=== PATIENT | female | born 1995 | race Caucasian/White ===

== ENCOUNTER 2019-08-03 11:23 | Inpatient (IN) | payer BC ==
[2019-08-03] MEDS ORDERED: Ondansetron 4 MG/2 ML SDV IVPUSH PRN (11:58)
[2019-08-03] MEDS ORDERED: Nalbuphine 10 MG/1 ML Vial IVPUSH PRN (11:58)
[2019-08-03] MEDS ORDERED: Sodium Chloride 0.9% 10 ML Syringe FLUSH PRN (11:58)
[2019-08-03] MEDS ORDERED: Oxytocin/Lactated Ringers 10 UNIT/1,000 ML BAG IV SCH ×2 (12:00)
[2019-08-03] MEDS ORDERED: Lactated Ringers 1,000 ML IV SCH (12:00)
--- NOTE | 2019-08-03 12:01 | PCM.LDHP ---
L&D History of Present Illness - General Date of Service: 08/03/19 Admit Problem/Dx: Patient Status Order with Admit Dx/Problem 08/03/19 11:59 Patient Status [ADT] Routine Admission Diagnosis/Problem Admission Diagnosis/Problem Normal Source of Information: Patient History Limitations: Reports: No Limitations - History of Present Illness Introduction:: Patient is a 24-year-old 032 at 39-6/7 weeks gestation who presents for elective induction of labor. Doing well today. No significant contractions. Good movement - Related Data Allergies/Adverse Reactions: Allergies Allergy/AdvReac Type Severity Reaction Status Date / Time No Known Allergies Allergy Verified 06/19/19 04:12 Past Medical History - Past Health History Medical/Surgical History: Denies Medical/Surgical History [employer] History: Reports: : 6 Para: 2 Social & Family History - Tobacco Use Smoking Status *Q: Never Smoker - Alcohol Use Alcohol Use History: No - Recreational Drug Use Recreational Drug Use: No H&P Review of Systems - Review of Systems: Review Of Systems: See Below General: Reports: No Symptoms Pulmonary: Reports: No Symptoms Cardiovascular: Reports: No Symptoms Gastrointestinal: Reports: No Symptoms Genitourinary: Reports: No Symptoms Musculoskeletal: Reports: No Symptoms Psychiatric: Reports: No Symptoms Neurological: Reports: No Symptoms L&D Exam - Exam Exam: See Below - OB Specific Contraction Intensity: Irritability Movement: Active Heart Tones: Present Heart Tones per Min: 140 Heart Rate (FHR) Variability: Moderate (6-25 bmp) Presentation: Vertex - Roth Score Roth Score Cervix Position: Posterior Roth Score Consistency: Soft Roth Score Effacement: 51-70% Roth Score Dilation: 1-2 cm Roth Score Infant's Station: -2 Orth Score Total: 6 - Exam General: Alert, Oriented, Cooperative Lungs: Clear to Auscultation, Normal Respiratory Effort Cardiovascular: Regular Rate, Regular Rhythm GI/Abdominal Exam: Soft, Non-Tender Genitourinary: Normal external exam Extremities: Normal Inspection Skin: Warm, Dry, Intact - Patient Data Result Diagrams: 08/03/19 12:27 - Problem List (1) 39 weeks gestation of SNOMED Code(s): 93990588 ICD Code: Z3A.39 - 39 WEEKS GESTATION OF Status: Acute Current Visit: Yes Problem List Initiated/Reviewed/Updated: Yes Orders Last 24hrs: Active Orders 24 hr Category Date Time Status Patient Status [ADT] Routine ADT 08/03/19 11:59 Ordered Activity as Tolerated [RC] PFP Care 08/03/19 11:59 Ordered Communication Order [RC] ASDIRECTED Care 08/03/19 11:59 Ordered Communication Order [RC] ASDIRECTED Care 08/03/19 11:59 Ordered Communication Order [RC] ASDIRECTED Care 08/03/19 11:59 Ordered Heart Tones [RC] ASDIRECTED Care 08/03/19 11:59 Ordered Monitoring [RC] INTERMITTENT Care 08/03/19 11:59 Ordered Non Stress Test [RC] PER UNIT ROUTINE Care 08/03/19 11:59 Ordered Notify Provider [RC] ASDIRECTED Care 08/03/19 11:59 Ordered Notify Provider [RC] PRN Care 08/03/19 11:59 Ordered Peripheral IV Care [RC] . DIRECTED Care 08/03/19 11:59 Ordered Vaginal Exam [RC] ASDIRECTED Care 08/03/19 11:59 Ordered Vital Signs [RC] ASDIRECTED Care 08/03/19 11:59 Ordered Vital Signs [RC] PER UNIT ROUTINE Care 08/03/19 11:59 Ordered Regular Diet [DIET] Diet 08/03/19 Lunch Ordered CBC W/O DIFF,HEMOGRAM [HEME] Routine Lab 08/03/19 11:58 Ordered RAPID PLASMA REAGIN,RPR [CHEM] Routine Lab 08/03/19 11:59 Ordered TYPE AND SCREEN [BBK] Routine Lab 08/03/19 11:58 Ordered Lactated Ringers [Ringers, Lactated] 1,000 ml Med 08/03/19 12:00 Ordered IV ASDIRECTED Nalbuphine [Nubain] Med 08/03/19 11:58 Ordered 10 mg IVPUSH Q2H PRN Ondansetron [Zofran] Med 08/03/19 11:58 Ordered 4 mg IVPUSH Q4H PRN Oxytocin/Lactated Ringers [Pitocin in LR 10 Units/1,000 Med 08/03/19 12:00 Ordered ML] 10 unit in 1,000 ml IV .CONTINUOUS Oxytocin/Lactated Ringers [Pitocin in LR 10 Units/1,000 Med 08/03/19 12:00 Ordered ML] 10 unit in 1,000 ml IV TITRATE Sodium Chloride 0.9% [Saline Flush] Med 08/03/19 11:58 Ordered 10 ml FLUSH ASDIRECTED PRN Electronic Heart Tones Ext w TOCO [WOMSER] Ot 08/03/19 11:59 Ordered Routine Electronic Heart Tones Internal [WOMSER] Per Unit Ot 08/03/19 11:59 Ordered Routine Peripheral IV Insertion Adult [OM.PC] Routine Ot 08/03/19 11:59 Ordered Assessment/Plan Comment:: 24-year-old 032 at 39-6/7 weeks gestation who presents for induction of labor * Labs ordered * GBS negative, no need for antibiotics * Pitocin and AROM for induction * Pain management per patient preference * Anticipate
[2019-08-03] MEDS ORDERED: ePHEDrine 50 MG/ML SDV IVPUSH PRN (13:01)
[2019-08-03] MEDS ORDERED: fentaNYL 100 MCG/2 ML SDV EPIDUR PRN (13:01)
[2019-08-03] MEDS ORDERED: fentaNYL/Bupivacaine in NS PF 2 MCG-0.125% 250 ML Premix EPIDUR PRN (13:01)
[2019-08-03] MEDS ORDERED: diphenhydrAMINE 50 MG/ML SDV IVPUSH PRN (13:01)
--- NOTE | 2019-08-03 21:53 | PCM.DEL ---
L & D Note - General Info Date of Service: 08/03/19 - Delivery Note Labor: Induced by ARM, Induced by Oxytocin Delivery Outcome: Livebirth Infant Delivery Method: Spontaneous Vaginal Delivery-Single Infant Delivery Mode: Spontaneous Presentation: Left Occiput Anterior (ESTELA) Nuchal Cord: None Anesthesia Type: None Amniotic Fluid Description: Meconium Stained Episiotomy Type: None Laceration: None Placenta: Intact, Spontaneous Cord: 3 Vessels Estimated Blood Loss: 200 Resuscitation Needed: Yes : Bulb Syringe, Stimulated, Warmed, [place] Used, Warmer Used Delivery Comments (Free Text/Narrative):: Patient found to be complete and began pushing. With maternal pushing effort head delivered from an ESTELA presentation. No nuchal cord present. With gentle downward traction the shoulders and body delivered. Infant placed on maternal abdomen. Cord clamped and cut. Cord blood obtained. Placenta allowed time to separate and expelled intact. Inspection of the perineum showed no lacerations - General Info Date of Service: 08/03/19 - Patient Data Weight - Most Recent: 92.533 kg Lab Results Last 24 Hours: Laboratory Results - last 24 hr 08/03/19 08/03/19 Range/Units 12:27 12:27 WBC 11.06 H (3.98-10.04) K/mm3 RBC 3.21 L (3.98-5.22) M/mm3 Hgb 9.5 L (11.2-15.7) gm/dl Hct 28.8 L (34.1-44.9) % MCV 89.7 (79.4-94.8) fl MCH 29.6 (25.6-32.2) pg MCHC 33.0 (32.2-35.5) g/dl RDW Std Deviation 43.9 (36.4-46.3) fL Plt Count 252 (182-369) K/mm3 MPV 9.5 (9.4-12.3) fl Blood Type A POSITIVE Gel Antibody Screen Negative Med Orders - Current: Current Medications Diphenhydramine HCl (Benadryl) 25 mg IVPUSH Q6H PRN PRN Reason: Itching Ephedrine Sulfate (Ephedrine Sulfate) 5 mg IVPUSH ASDIRECTED PRN PRN Reason: HYPOTENTSION Fentanyl (Sublimaze) 100 mcg EPIDUR Q3H PRN PRN Reason: Pain Fentanyl/Bupivacaine HCl (Fentanyl/Bupivacaine/Ns 2 Mcg-0.125% 250 Ml) 2 mcg EPIDUR CONTINUOUS PRN PRN Reason: Pain Lactated Ringer's (Ringers, Lactated) 1,000 mls @ 40 mls/hr IV ASDIRECTED YING Last Admin: 08/03/19 12:20 Dose: 40 mls/hr Oxytocin/Lactated Ringer's (Pitocin In Lr 10 Units/1,000 Ml) 10 unit in 1,000 mls @ 12 mls/hr IV TITRATE YING; Protocol Last Titration: 08/03/19 18:15 Dose: 12 munits/min, 72 mls/hr Oxytocin/Lactated Ringer's (Pitocin In Lr 10 Units/1,000 Ml) 10 unit in 1,000 mls @ 500 mls/hr IV .CONTINUOUS YING Nalbuphine HCl (Nubain) 10 mg IVPUSH Q2H PRN PRN Reason: Pain Ondansetron HCl (Zofran) 4 mg IVPUSH Q4H PRN PRN Reason: Nausea/Vomiting Sodium Chloride (Saline Flush) 10 ml FLUSH ASDIRECTED PRN PRN Reason: Keep Vein Open - Problem List & Annotations (1) 39 weeks gestation of SNOMED Code(s): 29314010 Code(s): Z3A.39 - 39 WEEKS GESTATION OF Status: Acute Current Visit: Yes (2) Vaginal delivery SNOMED Code(s): 274867941 Code(s): O80 - ENCOUNTER FOR FULL-TERM UNCOMPLICATED DELIVERY Status: Acute Current Visit: Yes - Problem List Review Problem List Initiated/Reviewed/Updated: Yes - My Orders Last 24 Hours: My Active Orders 08/03/19 11:58 Nalbuphine [Nubain] 10 mg IVPUSH Q2H PRN Ondansetron [Zofran] 4 mg IVPUSH Q4H PRN Sodium Chloride 0.9% [Saline Flush] 10 ml FLUSH ASDIRECTED PRN 08/03/19 11:59 Patient Status [ADT] Routine Activity as Tolerated [RC] PFP Communication Order [RC] ASDIRECTED Communication Order [RC] ASDIRECTED Communication Order [RC] ASDIRECTED Heart Tones [RC] ASDIRECTED Monitoring [RC] INTERMITTENT Notify Provider [RC] ASDIRECTED Notify Provider [RC] PRN Peripheral IV Care [RC] . DIRECTED Vaginal Exam [RC] ASDIRECTED Vital Signs [RC] ASDIRECTED Vital Signs [RC] PER UNIT ROUTINE Electronic Heart Tones Ext w TOCO [WOMSER] Routine Electronic Heart Tones Internal [WOMSER] Per Unit Routine Peripheral IV Insertion Adult [OM.PC] Routine 08/03/19 12:00 Lactated Ringers [Ringers, Lactated] 1,000 ml IV ASDIRECTED Oxytocin/Lactated Ringers [Pitocin in LR 10 Units/1,000 ML] 10 unit in 1,000 ml IV .CONTINUOUS Oxytocin/Lactated Ringers [Pitocin in LR 10 Units/1,000 ML] 10 unit in 1,000 ml IV TITRATE 08/03/19 12:27 RAPID PLASMA REAGIN,RPR [CHEM] Routine 08/03/19 12:36 PATIENT RETYPE [BBK] Routine 08/03/19 21:47 Patient Status Manage Transfer [TRANSFER] Routine 08/03/19 21:48 Resuscitation Status Routine 08/03/19 Lunch Regular Diet [DIET] - Assessment Assessment:: 24 y/o G6 now P3033 PPD#0 from at 39 6/7 wks - Plan Plan:: * Routine cares * Encourage breast feeding * Discharge home in 2 days
[2019-08-03] MEDS ORDERED: Docusate Sodium 100 MG Cap PO PRN (22:37)
[2019-08-03] MEDS ORDERED: Lanolin 100% Cream 7 GM Tube TOP PRN (22:37)
[2019-08-03] MEDS ORDERED: Benzocaine/Menthol 20%-0.5% Spray 56 GM Canister TOP PRN (22:37)
[2019-08-03] MEDS ORDERED: Witch Hazel Medicated Pads 40/Jar TOP PRN (22:37)
[2019-08-03] MEDS ORDERED: Acetaminophen 325 MG Tab PO PRN (22:37)
[2019-08-03] MEDS: Ibuprofen 600 MG Tab PO PRN (23:44)
--- NOTE | 2019-08-04 06:39 | PCM.PNPP ---
- General Info Date of Service: 08/04/19 Functional Status: Reports: Pain Controlled, Tolerating Diet, Ambulating, Urinating - Review of Systems General: Reports: No Symptoms Pulmonary: Reports: No Symptoms Cardiovascular: Reports: No Symptoms Gastrointestinal: Reports: No Symptoms Genitourinary: Reports: No Symptoms Musculoskeletal: Reports: No Symptoms Neurological: Reports: No Symptoms - General Info Date of Service: 08/04/19 - Patient Data Vital Signs - Most Recent: Last Vital Signs Temp 36.7 C 08/04/19 03:49 Pulse 68 08/04/19 03:49 Resp 14 08/04/19 03:49 BP 115/66 08/04/19 03:49 Pulse Ox 98 08/04/19 03:49 Weight - Most Recent: 92.533 kg Lab Results - Last 24 Hours: Laboratory Results - last 24 hr 08/03/19 08/03/19 08/03/19 Range/Units 12:27 12:27 12:27 WBC 11.06 H (3.98-10.04) K/mm3 RBC 3.21 L (3.98-5.22) M/mm3 Hgb 9.5 L (11.2-15.7) gm/dl Hct 28.8 L (34.1-44.9) % MCV 89.7 (79.4-94.8) fl MCH 29.6 (25.6-32.2) pg MCHC 33.0 (32.2-35.5) g/dl RDW Std Deviation 43.9 (36.4-46.3) fL Plt Count 252 (182-369) K/mm3 MPV 9.5 (9.4-12.3) fl RPR Non-reactive (NONREACTIVE) Blood Type A POSITIVE Gel Antibody Screen Negative Med Orders - Current: Current Medications Acetaminophen (Tylenol) 650 mg PO Q4H PRN PRN Reason: mild pain or fever Benzocaine/Menthol (Dermoplast Pain Relief [place]) 0 gm TOP ASDIRECTED PRN PRN Reason: Perineal Comfort Measure Last Admin: 08/03/19 23:44 Dose: 1 can Docusate Sodium (Colace) 100 mg PO BID PRN PRN Reason: Constipation Emollient Ointment (Lansinoh Hpa) 0 gm TOP ASDIRECTED PRN PRN Reason: Sore Nipples Ibuprofen (Motrin) 600 mg PO Q6H PRN PRN Reason: Mild pain or fever Last Admin: 08/03/19 23:44 Dose: 600 mg Witch Bridgette (Tucks) 1 pad TOP ASDIRECTED PRN PRN Reason: Perineal Comfort Measure Last Admin: 08/03/19 23:44 Dose: 1 tub Discontinued Medications Diphenhydramine HCl (Benadryl) 25 mg IVPUSH Q6H PRN PRN Reason: Itching Ephedrine Sulfate (Ephedrine Sulfate) 5 mg IVPUSH ASDIRECTED PRN PRN Reason: HYPOTENTSION Fentanyl (Sublimaze) 100 mcg EPIDUR Q3H PRN PRN Reason: Pain Fentanyl/Bupivacaine HCl (Fentanyl/Bupivacaine/Ns 2 Mcg-0.125% 250 Ml) 2 mcg EPIDUR CONTINUOUS PRN PRN Reason: Pain Lactated Ringer's (Ringers, Lactated) 1,000 mls @ 40 mls/hr IV ASDIRECTED YING Last Admin: 08/03/19 12:20 Dose: 40 mls/hr Oxytocin/Lactated Ringer's (Pitocin In Lr 10 Units/1,000 Ml) 10 unit in 1,000 mls @ 12 mls/hr IV TITRATE YING; Protocol Last Titration: 08/03/19 21:35 Dose: 500 mls/hr Oxytocin/Lactated Ringer's (Pitocin In Lr 10 Units/1,000 Ml) 10 unit in 1,000 mls @ 500 mls/hr IV .CONTINUOUS YING Nalbuphine HCl (Nubain) 10 mg IVPUSH Q2H PRN PRN Reason: Pain Ondansetron HCl (Zofran) 4 mg IVPUSH Q4H PRN PRN Reason: Nausea/Vomiting Sodium Chloride (Saline Flush) 10 ml FLUSH ASDIRECTED PRN PRN Reason: Keep Vein Open - Infant Interaction Infant Disposition, : [facility] in Room with Family Interaction: Holding Infant Infant Feeding: Breastfed ; Nursed Well Support Person: - Recovery Exam Fundal Tone: Firm Fundal Level: At Umbilicus Fundal Placement: Midline Lochia Amount: Small Lochia Color: Rubra/Red Perineum Description: Intact, Minimal Bruising/Swelling Bladder Status: Voiding - Exam General: Alert, Oriented, Cooperative GI/Abdominal Exam: Soft, Non-Tender Extremities: Normal Inspection Skin: Warm, Dry, Intact - Problem List & Annotations (1) 39 weeks gestation of SNOMED Code(s): 03472548 Code(s): Z3A.39 - 39 WEEKS GESTATION OF Status: Acute Current Visit: Yes (2) Vaginal delivery SNOMED Code(s): 967442356 Code(s): O80 - ENCOUNTER FOR FULL-TERM UNCOMPLICATED DELIVERY Status: Acute Current Visit: Yes - Problem List Review Problem List Initiated/Reviewed/Updated: Yes - My Orders Last 24 Hours: My Active Orders 08/03/19 11:59 Activity as Tolerated [RC] PFP Communication Order [RC] ASDIRECTED Communication Order [RC] ASDIRECTED Communication Order [RC] ASDIRECTED Heart Tones [RC] ASDIRECTED Monitoring [RC] INTERMITTENT Notify Provider [RC] ASDIRECTED Notify Provider [RC] PRN Vaginal Exam [RC] ASDIRECTED Vital Signs [RC] ASDIRECTED Vital Signs [RC] PER UNIT ROUTINE 08/03/19 21:48 Resuscitation Status Routine 08/03/19 22:37 Activity as Tolerated [RC] PER UNIT ROUTINE Vital Signs [RC] ,15,21,03 Acetaminophen [Tylenol] 650 mg PO Q4H PRN Benzocaine/Menthol [Dermoplast Pain Relief [place]] See Dose Instructions TOP ASDIRECTED PRN Docusate Sodium [Colace] 100 mg PO BID PRN Ibuprofen [Motrin] 600 mg PO Q6H PRN Lanolin [Lansinoh HPA] See Dose Instructions TOP ASDIRECTED PRN Witch Bridgette [Tucks] 1 pad TOP ASDIRECTED PRN Assess Lochia [WOMSER] Per Unit Routine Assess Uterine Involution [WOMSER] Per Unit Routine Breast Pump [WOMSER] Per Unit Routine Heat Therapy [OM.PC] PRN Ice Therapy [OM.PC] Per Unit Routine Medication Administration Instruction [OM.PC] Routine Perineal Care [OM.PC] Per Unit Routine Peripheral IV Discontinue [OM.PC] Routine Sitz Bath [OM.PC] Per Unit Routine 08/03/19 Dinner Regular Diet [DIET] 08/04/19 22:37 Heat Therapy [OM.PC] PRN - Assessment Assessment:: 24 y/o G6 now P3033 PPD#1 from at 39 6/7 wks - Plan Plan:: * Routine cares * Encourage breast feeding * Discharge home tomorrow
[2019-08-04] MEDS ORDERED: Measles, Mumps & Rubella Vaccine 0.5 ML SDV SUBCUT ONE (14:30)
[2019-08-04] MEDS: Ibuprofen 600 MG Tab PO PRN ×2 (14:32→22:15)
--- NOTE | 2019-08-05 07:03 | PCM.DCSUM1 ---
Discharge Summary - Hospital Course Free Text/Narrative:: Parisa is a 24-year-old 6 now para 3033 white female was admitted for induction at 39-6/7 weeks gestational age. She delivered a viable infant via spontaneous delivery. There was meconium-stained amniotic fluid. Assessment blood loss was 200 mL.'s she is at this time desiring discharge home. Vital signs stable. Afebrile. Diagnosis: Stroke: No - Discharge Data Discharge Date: 08/05/19 Discharge Disposition: Home, Self-Care 01 Condition: Good - Referral to Home Health Primary Care Physician: Sarah Benites MD - Patient Instructions Diet: Regular Diet as Tolerated Activity: As Tolerated (No intercourse or tampons until bleeding resolves) Driving: May Drive Today Showering/Bathing: May Shower (Patient may take a bath) Notify Provider of: Fever, Increased Pain, Swelling and Redness, Nausea and/or Vomiting - Discharge Plan Home Medications: Home Meds Acetaminophen [Tylenol] 650 mg PO Q4H PRN tablet 08/05/19 [Rx] Ibuprofen [Motrin] 600 mg PO Q6H PRN tablet 08/05/19 [Rx] Patient Handouts: and Self-Care, Vaginal Delivery, Care After - Discharge Summary/Plan Comment DC Time >30 min.: No Discharge Summary/Plan Comment: Discharge instructions: 1. Discharge home 2. Diet, activity and follow-up discussed with patient. Recommend nursing diet with increased calories and calcium. 3. Precautions given concern increased pain, bleeding, temperature, signs/ symptoms of DVT/PE. 4. Medications per home medication was printed, discussed with and given to the patient. 5. Return to clinic-Dr. Benites at [facility] in 6 weeks Diagnosis: Term -delivered Condition: Good - Patient Data Vitals - Most Recent: Last Vital Signs Temp 36.3 C 08/05/19 02:47 Pulse 65 08/05/19 02:47 Resp 14 08/05/19 02:47 BP 117/78 08/05/19 02:47 Pulse Ox 100 08/05/19 02:47 Weight - Most Recent: 92.533 kg I&O - Last 24 hours: Intake & Output 08/04/19 08/05/19 08/05/19 22:59 06:59 14:59 Intake Total 420 Balance 420 Med Orders - Current: Current Medications Acetaminophen (Tylenol) 650 mg PO Q4H PRN PRN Reason: mild pain or fever Benzocaine/Menthol (Dermoplast Pain Relief [place]) 0 gm TOP ASDIRECTED PRN PRN Reason: Perineal Comfort Measure Last Admin: 08/03/19 23:44 Dose: 1 can Docusate Sodium (Colace) 100 mg PO BID PRN PRN Reason: Constipation Emollient Ointment (Lansinoh Hpa) 0 gm TOP ASDIRECTED PRN PRN Reason: Sore Nipples Ibuprofen (Motrin) 600 mg PO Q6H PRN PRN Reason: Mild pain or fever Last Admin: 08/04/19 22:15 Dose: 600 mg Witch Bridgette (Tucks) 1 pad TOP ASDIRECTED PRN PRN Reason: Perineal Comfort Measure Last Admin: 08/03/19 23:44 Dose: 1 tub Discontinued Medications Diphenhydramine HCl (Benadryl) 25 mg IVPUSH Q6H PRN PRN Reason: Itching Ephedrine Sulfate (Ephedrine Sulfate) 5 mg IVPUSH ASDIRECTED PRN PRN Reason: HYPOTENTSION Fentanyl (Sublimaze) 100 mcg EPIDUR Q3H PRN PRN Reason: Pain Fentanyl/Bupivacaine HCl (Fentanyl/Bupivacaine/Ns 2 Mcg-0.125% 250 Ml) 2 mcg EPIDUR CONTINUOUS PRN PRN Reason: Pain Lactated Ringer's (Ringers, Lactated) 1,000 mls @ 40 mls/hr IV ASDIRECTED YING Last Admin: 08/03/19 12:20 Dose: 40 mls/hr Oxytocin/Lactated Ringer's (Pitocin In Lr 10 Units/1,000 Ml) 10 unit in 1,000 mls @ 12 mls/hr IV TITRATE YING; Protocol Last Titration: 08/03/19 21:35 Dose: 500 mls/hr Oxytocin/Lactated Ringer's (Pitocin In Lr 10 Units/1,000 Ml) 10 unit in 1,000 mls @ 500 mls/hr IV .CONTINUOUS YING Measles/Mumps/Rubella Vaccine Live (M-M-R Ii Vaccine) 0.5 ml SUBCUT .ONCE ONE Stop: 08/04/19 14:31 Last Admin: 08/04/19 14:25 Dose: 0.5 ml Nalbuphine HCl (Nubain) 10 mg IVPUSH Q2H PRN PRN Reason: Pain Ondansetron HCl (Zofran) 4 mg IVPUSH Q4H PRN PRN Reason: Nausea/Vomiting Sodium Chloride (Saline Flush) 10 ml FLUSH ASDIRECTED PRN PRN Reason: Keep Vein Open
== END 2019-08-05 10:09 | disposition home or self-care (01) | DRG 560 ==
LOC: JD.OBCHECK 11:23 → JD.OB 11:25 → JD.OBCHECK 11:59 → JD.OB 21:33 → OBSVTOIN 21:33
PROVIDERS: ADMIT Obstetrics & Gynecology; ATTEND Obstetrics & Gynecology
PROC: 10E0XZZ Delivery of Products of Conception, External Approach (ICD-10-PCS; principal; 2019-08-03)
PROC: 10907ZC Drainage of Amniotic Fluid, Therapeutic from Products of Conception, Via Natural or Artificial Opening (ICD-10-PCS; 2019-08-03)
PROC: 3E033VJ Introduction of Other Hormone into Peripheral Vein, Percutaneous Approach (ICD-10-PCS; 2019-08-03)
DX: O77.0 Labor and delivery complicated by meconium in amniotic fluid (principal); Z3A.39 39 weeks gestation of pregnancy; Z37.0 Single live birth; Z23 Encounter for immunization
CPT/HCPCS: 36415; 59025; 59409; 85027; 86592; 86850; 86900; 86901; 90471; 90707; A9270-GY; J2590; J7120